=== PATIENT | female | born 2000 | race African-American/Black ===

== ENCOUNTER 2019-03-19 21:45 | Emergency (ER) | payer MEDICAID ==
[~2019-03-19] VITALS: Ht 149.9 cm; Wt 62.0 kg
[2019-03-19 23:24] LABS: BASOPHILS % 0.6 % (0.0-2.0); EOSINOPHILS % 1.1 % (0.0-5.0); HEMATOCRIT. 39.1 % (36.0-48.0); HEMOGLOBIN. 13.7 g/dL (12.0-16.0); LYMPHOCYTES % 36.3 % (20.0-50.0); MEAN CORPUSCULAR HEMOGLOBIN 31.8 pg (28.0-32.0); MEAN CORPUSCULAR VOLUME 90.7 fL (81.0-99.0); MEAN PLATELET VOLUME 7.6 fl (7.4-10.4); MONOCYTES % 9.4 % (2.0-8.0); NEUTROPHILS % 52.6 % (40.0-76.0); PLATELET 230 x1000/uL (130-400); RED BLOOD CELL COUNT 4.31 mill/uL (4.2-5.4); RED CELL DISTRIBUTION WIDTH 12.4 % (11.6-14.6)
[2019-03-19 23:27] LABS: CHLORIDE 107 mEq/L (98-107)
[2019-03-19 23:42] LABS: HCG SCREEN NEGATIVE
[2019-03-20 00:03] LABS: CLARITY URINE CLOUDY (CLEAR); COLOR URINE RED (YELLOW); KETONES URINE NEGATIVE (NEGATIVE); LEUKOCYTE ESTERASE URINE TRACE (NEGATIVE); NITRITE URINE NEGATIVE (NEGATIVE); OCCULT BLOOD URINE 3+ (NEGATIVE); PH URINE 6.5 (4.5-8.0); PROTEIN URINE 1+ (NEGATIVE); SPECIFIC GRAVITY URINE 1.011 (1.005-1.030); UROBILINOGEN URINE 0.2 E.U./dL (0.2-1.0)
[2019-03-20] MEDS: ONDANSETRON 4MG ODT PO ONE (00:21)
[2019-03-20] MEDS: HYDROCODONE/ACETAMINOPHEN 5/325MG TABLET PO ONE (00:22)
[2019-03-20 02:00] VITALS: BP 112/64
== END 2019-03-20 02:09 | disposition home or self-care (01) ==
LOC: ER 22:28
DX: K52.9 Noninfective gastroenteritis and colitis, unspecified (principal)
CPT/HCPCS: 36415; 80053; 81003; 81025; 83690; 84703; 85025; 99283; Q0162

== ENCOUNTER 2024-07-30 14:51 | Emergency (ER) | payer MEDICAID ==
[~2024-07-30] VITALS: Ht 152.4 cm; Wt 64.1 kg
[2024-07-30 15:01] VITALS: O2SAT 100
[2024-07-30] MEDS: KETOROLAC 30MG/ML VIAL IM STA (16:21)
[2024-07-30 17:44] VITALS: BP 120/70; PULSE 69; RESP 18; TEMP 36.9; O2SAT 100
[2024-07-30] MEDS ORDERED: ACET-3524 PO (18:00)
== END 2024-07-30 17:49 | disposition home or self-care (01) ==
LOC: ER 14:51
DX: M79.604 Pain in right leg (principal)
CPT/HCPCS: 73590; 73600; 96372; 99284; J1885; Z7610 ×2